=== PATIENT | male | born 1970 ===

== ENCOUNTER 2018-04-07 19:49 | Emergency (ER) | payer SELFPAY ==
[~2018-04-07 19:49] MED LIST: CEP500 PO; NO CURRENT MEDS; NO MEDS; PER PO
--- NOTE | 2018-04-07 19:53 | ER Report ---
History and Physical Time Seen By MD: 19:52 HPI/ROS CHIEF COMPLAINT: Suicidal ideation HISTORY OF PRESENT ILLNESS: Patient is a 47-year-old male with no contributory past medical history who presents to the emergency department for evaluation of depression with suicidal ideation and plan. Patient states multiple stressors in his life that have led him to this point. He denies any prior history of depression or suicidal ideation. Patient has no prior psychiatric diagnosis. Patient is a binge drinker of alcohol and also occasionally uses cocaine. His last drink was today and last use of cocaine was yesterday. Patient is accompanied by the mother of his children and they are currently . She states that the patient binge drinks and for that reason she does not want her kids around him. She denies any violence however she is concerned about the children being around when he is inebriated. Patient does smoke tobacco. REVIEW OF SYSTEMS: Constitutional: No fever, no chills. Eyes: No discharge. ENT: No sore throat. Cardiovascular: No chest pain, no palpitations. Respiratory: No cough, no shortness of breath. Gastrointestinal: No abdominal pain, no vomiting. Genitourinary: No hematuria. Musculoskeletal: No back pain. Skin: No rashes. Neurological: No headache. Psychiatric: Depression Allergies: Coded Allergies: No Known Drug Allergies (Verified , 01/27/10) Home Meds Discontinued Reported Medications [No Meds] No Conflict Check, 0 Refills 01/27/10 Past Medical/Surgical History History of binge drinking alcohol, history of cocaine abuse. Constitutional Vital Sign - Last 24 Hours 04/07/18 04/07/18 04/07/18 04/07/18 19:56 20:04 20:19 20:34 Temp 98.7 Pulse 83 75 74 74 Resp 16 B/P (MAP) 138/95 Pulse Ox 89 88 92 88 O2 Delivery Room Air 04/07/18 04/07/18 20:49 21:16 Pulse 75 B/P (MAP) 107/69 (82) Pulse Ox 94 Physical Exam General/Constitutional: Patient is awake, alert, nontoxic and in no acute respiratory distress. Head: Normocephalic and atraumatic. Eyes: Conjunctival clear, Pupils are equal and reactive to light. Extraocular muscles are intact and symmetrical. Sclera are clear and anicteric. Ears:External canals are clear. Tympanic membranes are clear with normal landmarks and light reflex. Nares: No rhinorrhea or bleeding. Turbinates are pink and moist. Oropharyngeal: Mucous membranes are moist. There is no pharyngeal erythema or exudate. There are no palatal petechiae. Uvula is midline and symmetrical. Neck: Supple, no adenopathy. Cardiovascular: Heart is regular rate and rhythm without audible murmurs, rubs or gallops. Pulmonary: Lungs are clear to auscultation bilaterally. There are no wheezes, rales, or rhonchi. Chest rise is symmetrical Abdomen: Soft, nontender, no guarding or peritoneal signs. Extremities: No gross deformities, No peripheral cyanosis. Able to move all 4 extremities. Neuro: Alert and oriented X3, Cranial nerves 2 thru 12 are intact and symmetrical. Patient has normal gait. Skin: No rashes, skin is warm dry and well perfused. Psychiatric: Patient is awake and alert mood seems withdrawn and depressed which is concurrent with affect. Patient has suicidal ideation with plan to shoot himself with a 12-gauge shotgun which she apparently does have access too. He is currently calm and cooperative and wishes to seek treatment. Patient does not seem to be responding to any internal stimuli. Thought process is logical and goal-directed. Medical Decision Making Data Points Result Diagram: 04/07/18200904/07/182009 Laboratory Hematology Test 04/07/18 20:10 04/07/18 21:00 Red Blood Count 6.23 M/uL (4.00-5.60) Mean Corpuscular Volume 87.8 fL (80.0-96.0) Mean Corpuscular Hemoglobin 30.2 pg (26.0-33.0) Mean Corpuscular Hemoglobin Concent 34.4 g/dL (32.0-36.0) Red Cell Distribution Width 13.7 % (11.5-14.5) Mean Platelet Volume 7.9 fL (7.2-11.1) Neutrophils (%) (Auto) 59.4 % (39.4-72.5) Lymphocytes (%) (Auto) 32.1 % (17.6-49.6) Monocytes (%) (Auto) 7.0 % (4.1-12.4) Eosinophils (%) (Auto) 0.7 % (0.4-6.7) Basophils (%) (Auto) 0.8 % (0.3-1.4) Nucleated RBC Relative Count (auto) 0.0 /100WBC Neutrophils # (Auto) 5.4 K/uL (2.0-7.4) Lymphocytes # (Auto) 2.9 K/uL (1.3-3.6) Monocytes # (Auto) 0.6 K/uL (0.3-1.0) Eosinophils # (Auto) 0.1 K/uL (0.0-0.5) Basophils # (Auto) 0.1 K/uL (0.0-0.1) Nucleated RBC Absolute Count (auto) 0.00 K/uL Sodium Level 145 mmol/L (137-145) Potassium Level 3.9 mmol/L (3.5-5.0) Chloride Level 106 mmol/L (98-107) Carbon Dioxide Level 26 mmol/L (22-30) Blood Urea Nitrogen 14 mg/dl (9-21) Creatinine 1.00 mg/dl (0.66-1.25) Glomerular Filtration Rate Calc > 60.0 Random Glucose 95 mg/dl (75-110) Calcium Level 9.0 mg/dl (8.4-10.2) Magnesium Level 2.3 mg/dl (1.7-2.2) Total Bilirubin 0.7 mg/dl (0.2-1.3) Aspartate Amino Transf (AST/SGOT) 27 U/L (0-35) Alanine Aminotransferase (ALT/SGPT) 48 U/L (0-56) Alkaline Phosphatase 25 U/L (0-126) Total Protein 4.6 g/dl (6.3-8.2) Albumin 4.5 g/dl (3.5-5.0) Salicylates Level < 10 mg/L Salicylate Last Dose Date unk Acetaminophen Level < 10 ug/ml Serum Alcohol 122 mg/dl Urine Color Yellow Urine Clarity Clear Urine pH 6.0 pH (4.8-9.5) Urine Specific [place] 1.023 Urine Protein Negative mg/dL (NEGATIVE) Urine Glucose (UA) Negative mg/dL (NEGATIVE) Urine Ketones Negative mg/dL (NEGATIVE) Urine Blood Negative (NEGATIVE) Urine Nitrite Negative (NEGATIVE) Urine Bilirubin Negative (NEGATIVE) Urine Urobilinogen 4.0 mg/dL (0.2-1.9) Urine Leukocyte Esterase Negative (NEGATIVE) Urine RBC 1 /HPF (0-2/HPF) Urine WBC 1 /HPF (0-5/HPF) Urine Squamous Epithelial Cells None /LPF (</=FEW) Urine Bacteria Negative /HPF (NONE-FEW) Urine Mucus Few /HPF (NONE-FEW) Urine Opiates Screen Positive Urine Barbiturates Screen Negative Ur Tricyclic Antidepressants Screen Negative Urine Phencyclidine Screen Negative Urine Amphetamines Screen Negative Urine Benzodiazepines Screen Negative Urine Cocaine Screen Positive Urine Cannabinoids Screen Positive Chemistry Test 04/07/18 20:10 04/07/18 21:00 White Blood Count 9.1 k/uL (4.5-11.0) Red Blood Count 6.23 M/uL (4.00-5.60) Hemoglobin 18.8 g/dL (14.0-18.0) Hematocrit 54.7 % (42.0-52.0) Mean Corpuscular Volume 87.8 fL (80.0-96.0) Mean Corpuscular Hemoglobin 30.2 pg (26.0-33.0) Mean Corpuscular Hemoglobin Concent 34.4 g/dL (32.0-36.0) Red Cell Distribution Width 13.7 % (11.5-14.5) Platelet Count 212 K/uL (150-450) Mean Platelet Volume 7.9 fL (7.2-11.1) Neutrophils (%) (Auto) 59.4 % (39.4-72.5) Lymphocytes (%) (Auto) 32.1 % (17.6-49.6) Monocytes (%) (Auto) 7.0 % (4.1-12.4) Eosinophils (%) (Auto) 0.7 % (0.4-6.7) Basophils (%) (Auto) 0.8 % (0.3-1.4) Nucleated RBC Relative Count (auto) 0.0 /100WBC Neutrophils # (Auto) 5.4 K/uL (2.0-7.4) Lymphocytes # (Auto) 2.9 K/uL (1.3-3.6) Monocytes # (Auto) 0.6 K/uL (0.3-1.0) Eosinophils # (Auto) 0.1 K/uL (0.0-0.5) Basophils # (Auto) 0.1 K/uL (0.0-0.1) Nucleated RBC Absolute Count (auto) 0.00 K/uL Glomerular Filtration Rate Calc > 60.0 Calcium Level 9.0 mg/dl (8.4-10.2) Magnesium Level 2.3 mg/dl (1.7-2.2) Total Bilirubin 0.7 mg/dl (0.2-1.3) Aspartate Amino Transf (AST/SGOT) 27 U/L (0-35) Alanine Aminotransferase (ALT/SGPT) 48 U/L (0-56) Alkaline Phosphatase 25 U/L (0-126) Total Protein 4.6 g/dl (6.3-8.2) Albumin 4.5 g/dl (3.5-5.0) Salicylates Level < 10 mg/L Salicylate Last Dose Date unk Acetaminophen Level < 10 ug/ml Serum Alcohol 122 mg/dl Urine Color Yellow Urine Clarity Clear Urine pH 6.0 pH (4.8-9.5) Urine Specific [place] 1.023 Urine Protein Negative mg/dL (NEGATIVE) Urine Glucose (UA) Negative mg/dL (NEGATIVE) Urine Ketones Negative mg/dL (NEGATIVE) Urine Blood Negative (NEGATIVE) Urine Nitrite Negative (NEGATIVE) Urine Bilirubin Negative (NEGATIVE) Urine Urobilinogen 4.0 mg/dL (0.2-1.9) Urine Leukocyte Esterase Negative (NEGATIVE) Urine RBC 1 /HPF (0-2/HPF) Urine WBC 1 /HPF (0-5/HPF) Urine Squamous Epithelial Cells None /LPF (</=FEW) Urine Bacteria Negative /HPF (NONE-FEW) Urine Mucus Few /HPF (NONE-FEW) Urine Opiates Screen Positive Urine Barbiturates Screen Negative Ur Tricyclic Antidepressants Screen Negative Urine Phencyclidine Screen Negative Urine Amphetamines Screen Negative Urine Benzodiazepines Screen Negative Urine Cocaine Screen Positive Urine Cannabinoids Screen Positive Toxicology Test 04/07/18 20:10 04/07/18 21:00 Salicylates Level < 10 mg/L Salicylate Last Dose Date unk Acetaminophen Level < 10 ug/ml Serum Alcohol 122 mg/dl Urine Opiates Screen Positive Urine Barbiturates Screen Negative Ur Tricyclic Antidepressants Screen Negative Urine Phencyclidine Screen Negative Urine Amphetamines Screen Negative Urine Benzodiazepines Screen Negative Urine Cocaine Screen Positive Urine Cannabinoids Screen Positive Urinalysis Test 04/07/18 21:00 Urine Color Yellow Urine Clarity Clear Urine pH 6.0 pH (4.8-9.5) Urine Specific [place] 1.023 Urine Protein Negative mg/dL (NEGATIVE) Urine Glucose (UA) Negative mg/dL (NEGATIVE) Urine Ketones Negative mg/dL (NEGATIVE) Urine Blood Negative (NEGATIVE) Urine Nitrite Negative (NEGATIVE) Urine Bilirubin Negative (NEGATIVE) Urine Urobilinogen 4.0 mg/dL (0.2-1.9) Urine Leukocyte Esterase Negative (NEGATIVE) Urine RBC 1 /HPF (0-2/HPF) Urine WBC 1 /HPF (0-5/HPF) Urine Squamous Epithelial Cells None /LPF (</=FEW) Urine Bacteria Negative /HPF (NONE-FEW) Urine Mucus Few /HPF (NONE-FEW) EKG/Imaging EKG Interpretation EKG shows normal sinus rhythm with left axis deviation otherwise normal. Monitor Interpretation: Normal Sinus Rhythm ED Course/Re-evaluation ED Course 04/07/2018 9:45:50 pm patient was medically cleared at this time I spoke with the on-call psychiatrist history physical exam case was discussed. Patient will be accepted for admission to the psychiatric floor Decision to Disposition Date: Apr 07, 2018 Decision to Disposition Time: 21:46 Depart Departure Latest Vital Signs Vital Signs Date Time Temp Pulse Resp B/P (MAP) Pulse Ox O2 Delivery O2 Flow Rate FiO2 04/07/18 21:16 107/69 (82) 04/07/18 20:49 75 94 04/07/18 19:56 98.7 16 Room Air Impression: Primary Impression: Suicidal ideation Condition: Improved Disposition: XFER TO [facility] New Scripts No Active Prescriptions or Reported Meds SRI CLEMENT MD Apr 07, 2018 19:53
--- NOTE | 2018-04-07 20:14 | EKG ---
FACILITY: [facility] PATIENT NAME: KARO MARTI : [id number] MR: [id number] V: [id number] EXAM DATE: ORDERING PHYSICIAN: SRI CLEMENT TECHNOLOGIST: Test Reason : Blood Pressure : / mmHG Vent. Rate : 078 BPM Atrial Rate : 078 BPM P-R Int : 150 ms QRS Dur : 074 ms QT Int : 392 ms P-R-T Axes : 067 -32 024 degrees QTc Int : 446 ms Normal sinus rhythm Left axis deviation No ST-T abnormalities No previous ECGs available Confirmed by KELLY CAPUTO ([id number]) on 04/07/2018 9:49:34 PM Referred By: Confirmed By:KELLY CAPUTO
[2018-04-07] MEDS ORDERED: NICOTINE 21 MG/24 HR PATCH TD ONE (20:20)
[2018-04-07 20:24] LABS: PLATELET COUNT, AUTOMATED 212 K/uL (150-450)
[2018-04-07] MEDS ORDERED: LORazepam 1 MG TAB PO ONE (21:15)
[2018-04-07] MEDS ORDERED: ONDANSETRON 4 MG ODT TABDP SL ONE (21:15)
[2018-04-07 21:16] VITALS: BP 107/69
== END 2018-04-07 22:21 ==
LOC: ER 20:13
DX: R45.851 Suicidal ideations (principal); F32.9 Major depressive disorder, single episode, unspecified
CPT/HCPCS: 80305; 80320; 80329; 81001; 83735; 84443; 85025; 93005; 99284; S0119; 82040; 82247; 82310; 82374; 82435; 82565; 82947; 84075; 84132; 84155; 84295; 84450; 84460; 84520

== ENCOUNTER 2018-04-07 21:15 | Inpatient (IN) | payer SELFPAY ==
[~2018-04-07] VITALS: Ht 170.2 cm; Wt 79.4 kg
[2018-04-07] MEDS ORDERED: MAG HYD/AL HYD/SIMETH 30ML UDC PO PRN (22:40)
[2018-04-07] MEDS ORDERED: DIAZEPAM 10 MG TAB PO PRN (22:40)
[2018-04-07] MEDS ORDERED: ACETAMINOPHEN 325 MG TAB PO PRN (22:40)
[2018-04-07 23:08] VITALS: BP 128/90
[2018-04-08 03:26] VITALS: BP 126/91
[2018-04-08 05:24] VITALS: BP 138/99
[2018-04-08 08:00] VITALS: BP 117/101
[2018-04-08] MEDS ORDERED: MULTIVITAMINS TAB PO SCH (09:00)
[2018-04-08] MEDS ORDERED: THIAMINE HCL 100 MG TAB PO SCH (09:00)
[2018-04-08] MEDS ORDERED: NICOTINE 21 MG/24 HR PATCH TD SCH (09:00)
[2018-04-08] MEDS ORDERED: buPROPion SR 150 MG TABCR PO SCH (12:20)
[2018-04-08] MEDS ORDERED: DIAZEPAM 10 MG TAB PO ONE (12:25)
[2018-04-08 13:25] VITALS: BP 124/74
[2018-04-08] MEDS ORDERED: NICOTINE INH SYSTEM 10 MG/INH INH PRN (15:05)
[2018-04-08] MEDS ORDERED: NICOTINE CARTRIDGE 1 EA PO PRN (15:05)
--- NOTE | 2018-04-08 16:29 | HISTORY AND PHYSICAL ---
DATE OF ADMISSION: April 07, 2018 Patient was seen at approximately 1100 hours on 08 April 2018 for note concerning this dictation. PRESENTING PROBLEM/CHIEF COMPLAINT "I have been drinking and using drugs, coming down, and was feeling suicidal." HISTORY OF PRESENT ILLNESS This is a very pleasant, 47-year-old male who was encouraged by his long-term significant other to get help on a voluntary basis in the Emergency Room and by coming to the Emergency Room. The patient has been recently bingeing, freely admits to using alcohol, cocaine, opiates, and cannabis, all of which was positive on toxicology screen. 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 Patient reports occasionally feels overwhelmed with life stressors, and he "snaps" and goes on a binge. Patient then reports he feels guilty about doing so and stops. Patient reports last week he started another binge with drugs and alcohol. Before that, it was two to three weeks ago. Patient reports coming down he felt very depressed, indicated to his suicidal thoughts and, again, was encouraged to come to the ER. Patient was admitted without incident. Regarding specific depressive symptoms, patient again reporting guilt over relapsing at times, but continues to say his energy, appetite, and concentration are normally good, interest in activities is good, and sleep is good. Patient does admit to having brief suicidal thoughts prior to admission which he attributes to drug withdrawal, and patient denies any current ongoing symptoms of suicidality. Patient reports he identifies specific stressors and that recently he has had to take care of his mother who has injured her hip. Work is an ongoing stressor. Patient feels he is working all the time. Patient and his family are trying to move out of town, but he feels he does not have time to get the family in their current house prepped and move out of town. Patient denies any ben, psychosis, panic attacks, PTSD , somatization, or other symptoms of psychiatric concern. MENTAL HEALTH HISTORY Patient has never been an inpatient as an adult in a psychiatric mead. He was evaluated when he was 13 years old and sent to [facility] for an evaluation for some conduct disorder symptoms. Patient has not been following up with any outpatient care since then. Patient has not currently been going to or any meetings, but he has in the past. Patient adamantly denying a history of suicidal attempt. FAMILY PSYCHIATRIC HISTORY Patient reports his father of complications related to alcoholism, and his grandfather on his father's side, also an alcoholic, shot himself. There is no other genetic history of psychiatric concern noted. PAST MEDICAL HISTORY * Chronic pain, mostly related to back and knee. * Patient denies any other medical problems. ALLERGIES Denies any allergies. CURRENT MEDICATIONS * Not currently on any medications for medical concerns. SOCIAL HISTORY Patient born in [place], raised mostly in [place]. Parents were at the time of his . His mother remains alive with some health problems. His father when he was 16 years old. He is the only child. He is a high school graduate. He had some post high school education involving welding. Patient has never been in the . He is not currently legally , but has been together for 12 years with his current significant other. Patient currently living with his current significant other and their 11-year-old and 5- year-old children. Patient also has three older children, ages 32, 23, and 20. Patient has been working as a furnace installer for many years and enjoys his work overall. LEGAL HISTORY Significant for seven DUIs total. Patient did one year in custodial for habitual criminality regarding DUIs. SUBSTANCE ABUSE HISTORY Patient reports his #1 drug of choice is marijuana, which he uses every day and has been for many, many years. Patient reports alcohol would be his #2 drug of choice. Patient also known to abuse stimulants and opiates. PHYSICAL EXAMINATION Please see emergency room note. Notable for: GENERAL: A 47-year-old, depressed-appearing male requesting admission for suicidal ideation. VITAL SIGNS: Vital signs at time of admission, temperature 98.7, pulse 83, respiratory rate 16, blood pressure 138/95, pulse oximetry 89% on room air. LABORATORY DATA CBC notable for RBCs elevated at 6.23, hemoglobin elevated at 18.8, hematocrit elevated at 54.7. Magnesium slightly elevated at 2.3. Otherwise, unremarkable CMP. TSH 1.09. Urinalysis did have urobiligen present, otherwise unremarkable. Toxicology screen notable for a serum alcohol level of 122, positive for cannabinoids, positive for cocaine, and positive for opiates. MENTAL STATUS EXAMINATION GENERAL APPEARANCE, BEHAVIOR, AND ATTITUDE: This is a somewhat tired-appearing , 47-year-old male, well groomed, making good eye contact. No bizarre mannerisms or tics. No periods of tearfulness. SPEECH: Within normal limits. Regular rate, rhythm, volume, and tone. MOOD: Described as somewhat frustrated, depressed at times. AFFECT: Mildly constricted and mood congruent overall. THOUGHT PROCESSES: Appear goal directed. Patient worried about the responsibilities of raising his children and going back to work. Logical in many ways. No loose associations or flight of ideas. THOUGHT CONTENT: Free of auditory or visual hallucinations, ideas of reference , thought broadcasting, delusions, obsessions, compulsions. Patient admitting to brief suicidal thoughts prior to admission, denying homicidal ideations. SENSORIUM: Clear. COGNITION: Alert and oriented to person, place, time, and situation. MEMORY: Immediate, recent, and remote estimated intact. INTELLIGENCE: Average based on interview. INSIGHT AND JUDGMENT: Considered grossly intact in the absence of drug and alcohol use. Patient presenting voluntarily for treatment and very compliant with unit staff. ASSESSMENT This is a very polite, pleasant, 47-year-old male, patient very cooperative on the unit, agreeing that he needs help with alcohol and substance use. Patient also stating he would like to go home as soon as possible in order to continue working. Patient's suicidal ideation seems to be related to acute substance use and acute intoxication and withdrawal from multiple substances. Will continue to monitor for any alcohol withdrawal at this time. Will get in contact with the patient's as well. DIAGNOSES PER DIAGNOSTIC AND STATISTICAL MANUAL OF MENTAL DISORDERS, FIFTH EDITION 1. Substance-induced mood disorder concerning alcohol, cannabis, cocaine, and opiates. 2. Cannabis use disorder, severe. 3. Alcohol use disorder, moderate to severe. 4. Stimulant intoxication and abuse, cocaine. 5. Opiate intoxication and abuse, Vicodin. 6. Ongoing social stressors. PLAN 1. Admit to the unit. 2. Necessary precautions will be implemented. 3. Patient will participate in individual and group therapy. 4. Will monitor for alcohol withdrawal and treat accordingly. 5. Will also prescribe Wellbutrin SR 150 mg q.a.m. and q. noon at this time to help with depressive symptoms and overall habitual behaviors. 6. Collateral information will be obtained as necessary. 7. Estimated length of stay two to three days. MTDD
[2018-04-08 17:58] VITALS: BP 122/79
[2018-04-08 21:05] VITALS: BP 118/86
[2018-04-08] MEDS ORDERED: diphenhydrAMINE 25 MG CAP PO ONE (21:20)
[2018-04-09 07:53] VITALS: BP 118/84
[2018-04-09] MEDS ORDERED: buPROPion SR 150 MG TABCR PO SCH ×2 (08:00→09:00)
--- NOTE | 2018-04-09 09:10 | BHS Progress Note ---
S - Subjective Progress Notes Subjective "I relapsed." Reports job and relationship stressors Family meeting w/significant other prior to discharge, recommend family therapy Reports anxiety increased as has urge to smoke Denies depression, suicidal ideation, denies having firearms in home Anger remains problematic, discuss outpatient therapy options and resources provided Suicidal Ideation: None Homicidal Ideation: None S - Objective Physical Exam Vital Signs Vital Signs Date Time Temp Pulse Resp B/P (MAP) Pulse Ox O2 Delivery O2 Flow Rate FiO2 04/09/18 07:53 98.7 80 16 118/84 (95) 93 Room Air 04/08/18 05:24 2.0 Muscle Strength and Tone: WNL Gait and Station: Steady BH Medications Reviewed: Side Effects, Benefits of Medication Allergies Reviewed: Yes Mental Status Exam General Appearance: Casual, Well Groomed, Good Eye Contact, Cooperative, Polite , Good Interaction Speech: Clear, Spontaneous, Normal Rate, Normal Rhythm, Normal Volume, Normal Tone Mood: No Dysthmic/Depressed, No Euthymic, No Hyperthymic, Other (Irritable) Affect: Full and Appropriate, Neutral, Anxious, Agitated Thought Process: Organized, Logical, Goal Directed, No Loose Associations, No Flight of Ideas Thought Content: No Suicidal Ideation, No Homicidal Ideation, No Delusions, No Auditory Halllucinations, No Visual Hallucinations, No Thought Broadcasting, No Ideas of Reference, No Obsessions, Compulsions Sensorium: Clear Cognition: Alert & Oriented-Person, Alert & Oriented-Place, Alert & Oriented- Time, [id number] Memory: Immediate, Recent, Remote Intelligence: Average Insight Judgment: Fair Lab Allergies Coded Allergies No Known Drug Allergies (Verified01/27/10) Microbiology ED Medications Multivitamins (Thera-M Enhanced Tab (Or Equiv)) 1 each QDAY Last administered on 04/08/18at 08:48; Admin Dose 1 EACH; Start 04/08/18 at 09:00; Stop 04/09/18 at 10 :58; Status DC Thiamine HCl (Vitamin B-1(*) 100 Mg Tab (Or Equiv)) 100 mg QDAY Last administered on 04/08/18at 08:48; Admin Dose 100 MG; Start 04/08/18 at 09:00; Stop 04/09/18 at 10:58; Status DC Diazepam (Valium(*) 10 Mg Tab (Or Equiv)) 10-20 mg Q1H PRN Last administered on 04/08/18at 06:11; Admin Dose 10 MG; Start 04/07/18 at 22:40; Stop 04/09/18 at 10: 58; Status DC Nicotine (Nicoderm Cq(*) 21 Mg/24 Hr (Or Equiv)) 21 mg QDAY Last administered on 04/08/18at 08:51; Admin Dose 21 MG; Start 04/08/18 at 09:00; Stop 04/08/18 at 15: 00; Status DC Bupropion HCl (Wellbutrin Sr 150 Mg Tabcr (Or Equiv)) 150 mg QDAY Last administered on 04/08/18at 12:39; Admin Dose 150 MG; Start 04/08/18 at 12:20; Stop 04/08/18 at 13:36; Status DC Diazepam (Valium(*) 10 Mg Tab (Or Equiv)) 10 mg ONCE ONCE Last administered on 04/08/18at 12:39; Admin Dose 10 MG; Start 04/08/18 at 12:25; Stop 04/08/18 at 12:31 ; Status DC Bupropion HCl (Wellbutrin Sr 150 Mg Tabcr (Or Equiv)) 150 mg BIDBL Last administered on 04/09/18at 08:37; Admin Dose 150 MG; Start 04/09/18 at 08:00; Stop 04/09/18 at 10:58; Status DC Nicotine (Nicotrol Inhaler 10 Mg/Inh (Or Equiv)) 10 mg PRN PRN Last administered on 04/08/18at 19:41; Admin Dose 10 MG; Start 04/08/18 at 15:05; Stop 04/09/18 at 10:58; Status DC Diphenhydramine HCl (Benadryl(*) 25 Mg Cap (Or Equiv)) 25 mg ONCE ONCE Last administered on 04/08/18at 21:41; Admin Dose 25 MG; Start 04/08/18 at 21:20; Stop 04/08/18 at 21:28; Status DC Additional Findings/Notes: Current Medications Medications (Trade) Dose Ordered Sig/Jessy Route PRN Reason Start Time Stop Time Status Last Admin Dose Admin Acetaminophen (Tylenol(*)325 Mg Tab (Or Equiv)) 650 mg Q4H PRN PO HEADACHE 04/07/18 22:40 04/09/18 10:58 DC Al Hydrox/Mg Hydrox/Simethicone (Maalox(*) 30 ml Udcup (Or Equiv)) 30 ml Q6H PRN PO HEARTBURN 04/07/18 22:40 04/09/18 10:58 DC Multivitamins (Thera-M Enhanced Tab (Or Equiv)) 1 each QDAY PO 04/08/18 09:00 04/09/18 10:58 DC 04/08/18 08:48 1 EACH Thiamine HCl (Vitamin B-1(*) 100 Mg Tab (Or Equiv)) 100 mg QDAY PO 04/08/18 09:00 04/09/18 10:58 DC 04/08/18 08:48 100 MG Diazepam (Valium(*) 10 Mg Tab (Or Equiv)) 10-20 mg Q1H PRN PO per ciwa 04/07/18 22:40 04/09/18 10:58 DC 04/08/18 06:11 10 MG Nicotine (Nicoderm Cq(*) 21 Mg/24 Hr (Or Equiv)) 21 mg QDAY TD 04/08/18 09:00 04/08/18 15:00 DC 04/08/18 08:51 21 MG Bupropion HCl (Wellbutrin Sr 150 Mg Tabcr (Or Equiv)) 150 mg QDAY PO 04/08/18 12:20 04/08/18 13:36 DC 04/08/18 12:39 150 MG Diazepam (Valium(*) 10 Mg Tab (Or Equiv)) 10 mg ONCE ONCE PO 04/08/18 12:25 04/08/18 12:31 DC 04/08/18 12:39 10 MG Bupropion HCl (Wellbutrin Sr 150 Mg Tabcr (Or Equiv)) 150 mg BID PO 04/09/18 09:00 04/09/18 09:00 DC Bupropion HCl (Wellbutrin Sr 150 Mg Tabcr (Or Equiv)) 150 mg BIDBL PO 04/09/18 08:00 04/09/18 10:58 DC 04/09/18 08:37 150 MG Nicotine (Nicotrol Inhaler 10 Mg/Inh (Or Equiv)) 10 mg PRN PRN INH NICOTINE REPLACEMENT 04/08/18 15:05 04/09/18 10:58 DC 04/08/18 19:41 10 MG Miscellaneous Information (Nicotrol Cartridge) 1 each PRN PRN PO NICOTINE REPLACEMENT 04/08/18 15:05 04/09/18 10:58 DC Diphenhydramine HCl (Benadryl(*) 25 Mg Cap (Or Equiv)) 25 mg ONCE ONCE PO 04/08/18 21:20 04/08/18 21:28 DC 04/08/18 21:41 25 MG [facility] Assessment and Plan [id number] Encounter Date: Apr 09, 2018 [id number] Encounter Time: 09:09 [facility] Plan: Admit to Unit, Necessary Precautions, Individual/Group Therapy, Admin /Titrate Meds, Educate Patient Multpiple Antipsychotics Used: No Problems: (1) Substance induced mood disorder Status: Acute (2) Stimulant abuse Status: Chronic (3) Opiate abuse, episodic Status: Chronic (4) Cannabis use disorder, moderate, dependence Status: Chronic (5) Alcohol use disorder, moderate, dependence Status: Chronic Condition Discharge to home Encourage outpatient therapy and medication management Encourage to abstain from etoh/illicit substances Crisis line provided, encourage use Return to ER for SI/HI, worsening symptoms IVAN HUNTER NP Apr 09, 2018 09:10
[2018-04-09] MEDS ORDERED: BUPR-156 PO (09:28)
[2018-04-09] MEDS ORDERED: NIC10R INH (09:30)
--- NOTE | 2018-04-09 13:56 | DISCHARGE SUMMARY ---
DATE OF ADMISSION: April 07, 2018 DATE OF DISCHARGE: April 09, 2018 FINAL DIAGNOSES PER DIAGNOSTIC AND STATISTICAL MANUAL OF MENTAL DISORDERS, FIFTH EDITION 1. Substance-induced mood disorder. 2. Cannabis use disorder, severe. 3. Alcohol use disorder, moderate. 4. Stimulant abuse/intoxication. 5. Opiate abuse/intoxication. 6. Problems related to alcohol and substance use. 7. Job and relationship stressors. REASON FOR ADMISSION/BRIEF HISTORY This patient is a 47-year-old male who presented to the Emergency Room with encouragement from his significant other to seek help with substance abuse on a voluntary basis. Patient reports recently abusing alcohol, cocaine, opiates, and cannabis, all of which he was positive for on his toxicology screen. Patient reports multiple external stressors including mother recently breaking her hip, job and relationship stressors. Patient has felt overwhelmingly impaired by these stressors. He reports that anger has been problematic, and he snaps at times and goes on a binge. Patient reports sporadic use of alcohol , opiates, stimulants, and regular use of cannabis. He becomes depressed and has guilt and shame with use. He had indicated to his significant other that he had thoughts of self-harm and was encouraged to come to the Emergency Room. Patient was admitted to the Behavioral Health Unit on a voluntary basis for further evaluation and treatment. PHYSICAL EXAMINATION Please see emergency room notes for physical exam. VITAL SIGNS: Vital signs at time of admission including temperature 98, pulse of 108, respiratory rate was 16, blood pressure 117/101, pulse oximetry 92% on room air. Vital signs at time of discharge include temperature of 98.7, pulse of 80, respiratory rate 16, blood pressure 118/84, pulse oximetry 93% on room air. LABORATORY DATA CBC within normal limits with the exception of hemoglobin and hematocrit elevated, 18.8 and 54.7. Chemistry panel within normal limits. Magnesium slightly elevated at 2.3. Total protein low, 4.6. Thyroid stimulating hormone 1.09. Urine screen within normal limits with the except of high urobilinogen 4.0. Toxicology includes salicylate and acetaminophen levels less than 10, serum alcohol level 122. Urine screen positive for opiates, cocaine, and cannabinoids; negative for barbiturates, tricyclics, phencyclidine, amphetamines , and benzodiazepines. MENTAL STATUS EXAMINATION GENERAL APPEARANCE, BEHAVIOR, AND ATTITUDE: Patient interacts well with team members at time of discharge. There is is also a team meeting with his significant other. Prior to discharge, he is slightly irritable as reports a desire to use nicotine. No periods of tearfulness. Making good eye contact. No bizarre mannerisms or tics. SPEECH: Regular rate, rhythm, volume, tone. MOOD: Slightly frustrated, irritable. Denies depression or suicidal thoughts. AFFECT: Minimally constricted, mood congruent overall. THOUGHT PROCESSES: Goal directed. Logical. No loose associations or flight of ideas. THOUGHT CONTENT: Free of auditory or visual hallucinations, ideas of reference , thought broadcasting, delusions, obsessions, compulsions. Patient denying adamantly suicidal or homicidal ideations. SENSORIUM: Clear. COGNITION: Alert and oriented to person, place, time, and situation. MEMORY: Immediate, recent, and remote estimated intact. INTELLIGENCE: Average based on interview. INSIGHT AND JUDGMENT: Considered intact in absence of alcohol or drug use. Presented voluntarily for treatment and agreeable with outpatient followup. RESULTS OF TESTING IMAGING: Please see laboratory data. CONSULTATIONS None. TREATMENT Patient was started on Wellbutrin SR 150 mg, which was titrated to b.i.d. dosing a.m. and noon. Patient denied adverse side effects and was agreeable with outpatient followup for further medication adjustments. Patient participated in individual and group therapy. HOSPITAL COURSE Patient remained calm and cooperative throughout his stay. He was able to recognize the impact of alcohol and illicit substances on overall health and relationship stress. He was agreeable with outpatient followup at [facility] and with AA. There was a family meeting with significant other, Lizzette , prior to his discharge with encouragement of family therapy due to current relationship stressors. Patient will discharge via transportation with significant other, although going to live with mother who recently broke hip, whom he reports is clean and sober and a good support system. CONDITION OF PATIENT ON DISCHARGE Stable. He is considered a minimal risk to himself or others. DISPOSITION Patient is discharged to home. DISCHARGE MEDICATIONS 1. Wellbutrin SR 150 mg b.i.d., a.m. and noon. 2. Nicotrol cartridge/inhaler as needed p.r.n. for nicotine replacement. DISCHARGE INSTRUCTIONS 1. Patient is to take medications only as prescribed. 2. Patient is to abstain from alcohol and all illicit substances. 3. He is encouraged to follow up with individual therapist and/or AA. He is given the appropriate referral and contact information for [facility] and plans to present on Wednesday, April 11, 2018, for mental health intake and further followup. 4. Patient is given the crisis line and encouraged use for worsening symptoms. 5. Patient denies having firearms in the home. 6. Patient is to return to the Emergency Room for worsening symptoms, suicidal or homicidal ideation. Patient is competent and verbalizes understanding of the above discharge plan and agreeable to such. JOSE GUADALUPE
== END 2018-04-09 10:50 | disposition home or self-care (01) | DRG 897 ==
LOC: BHS 21:15
PROVIDERS: ADMIT Nurse Practitioner Psychiatric/Mental Health; ATTEND Nurse Practitioner Psychiatric/Mental Health
DX: F19.14 Other psychoactive substance abuse with psychoactive substance-induced mood disorder (principal); R45.851 Suicidal ideations; F14.10 Cocaine abuse, uncomplicated; F10.20 Alcohol dependence, uncomplicated; F12.20 Cannabis dependence, uncomplicated; Y90.6 Blood alcohol level of 120-199 mg/100 ml; F11.90 Opioid use, unspecified, uncomplicated; Z81.1 Family history of alcohol abuse and dependence; Z81.8 Family history of other mental and behavioral disorders; Z56.3 Stressful work schedule; Z59.8 Other problems related to housing and economic circumstances
CPT/HCPCS: Q0163